=== PATIENT | female | born 1985 | race Caucasian/White ===

== ENCOUNTER 2017-03-18 03:24 | Emergency (ER) | payer OTHER ==
[~2017-03-18] VITALS: Ht 157.5 cm; Wt 94.7 kg
[~2017-03-18 03:24] MED LIST: ACET-749 PO; MTR600X PO; PRENTAB26 PO
[2017-03-18 03:29] VITALS: TEMP 36.7; Ht 157.5 cm; Wt 94.7 kg
[2017-03-18] MEDS ORDERED: FAMOTIDINE 20 MG TAB PO STA (03:44)
[2017-03-18] MEDS ORDERED: SUCRALFATE 1 GM TAB PO STA (03:44)
[2017-03-18] MEDS ORDERED: GI COCKTAIL PO STA (03:44)
[2017-03-18] MEDS ORDERED: ALUMINUM/MAGNESIUM SUSP 30 ML UDC ONE (03:56)
[2017-03-18] MEDS ORDERED: LIDOCAINE HCL 2% VISC SOLN 20 ML UDC ONE (03:57)
[2017-03-18 04:00] LABS: URINE APPEARANCE CLEAR (CLEAR); URINE BILIRUBIN NEG (NEG); URINE COLOR YELLOW; URINE NITRITE NEG (NEG); URINE SPECIFIC GRAVITY 1.027 (1.000-1.030); UROBILINOGEN NEG (NEG)
--- NOTE | 2017-03-18 04:03 | EMERGENCY ROOM VISIT NOTE ---
History Report prepared by Jose Maria: Jorje Awad Under the Supervision of: Dr. Deandre Jones M.D. First contact with patient: 03:36 Chief Complaint: ABDOMINAL PAIN Stated Complaint: CHEST,BACK,AND STOMACH PAIN History of Present Illness The patient is a 31 year old female who presents to the Emergency Room with complaints of worsening abdominal pain starting three days ago. The patient additionally states that she is having back pain and chest pain. She states that the pain woke her up this morning. The patient denies any urinary symptoms. She states that she gets chest pain often that dissipates in 45 minutes, though today it will not go away. She states that she still has her gall bladder, and there is no chance of . Additionally, she states that she does not have any heart issues, and she used to smoke. Source of History: patient Onset: three days ago Position: abdomen Timing: worsening Associated Symptoms: + chest pain, + back pain, No urinary symptoms Review of Systems See HPI for pertinent positives & negatives. A total of 10 systems reviewed and were otherwise negative. Past Medical & Surgical Medical Problems: (1) Left ankle injury Family History FH: stroke Social History Smoking Status: Former Smoker Marital Status: Housing Status: lives with family Occupation Status: unemployed Current/Historical Medications Scheduled PRN Oxycodone/Acetaminophen 5MG/325MG (Percocet 5MG/325MG), 1-2 TAB PO Q4H PRN for Pain Allergies Coded Allergies: Erythromycin (Verified Allergy, Unknown, 03/18/17) Physical Exam Vital Signs Date Time Temp Pulse Resp B/P (MAP) Pulse Ox O2 Delivery O2 Flow Rate FiO2 03/18/17 06:22 80 18 108/55 97 03/18/17 05:09 91 18 130/84 98 Room Air 03/18/17 04:12 80 03/18/17 03:29 36.7 89 20 138/94 100 Room Air Physical Exam GENERAL: Patient is a healthy-appearing well-nourished female HEAD: Normocephalic atraumatic EYES: Ocular movements intact pupils equal and react to light OROPHARYNX mucous membranes are moist no exudates present no erythema or edema present NECK: Supple no nuchal rigidity CHEST: Good equal expansion LUNGS: Clear and equal to auscultation CARDIAC: Normal S1 and S2 ABDOMEN: Tenderness in the epigastric region. Soft no guarding BACK: No CVA tenderness EXTREMITIES: No pain upon palpation normal muscle strength in all groups no clubbing cyanosis or edema NEURO: Patient is following commands and answering questions appropriately. Alert and oriented x3 Cranial Nerves 2-12 grossly intact Medical Decision & Procedures ER Provider Diagnostic Interpretation: Radiology results as stated below per my review and radiologist interpretation: US GALLBLADDER: Gallbladder stones and sludge identified. Wall is normal. No pericholecystic fluid. Sonographic Stein's sign is reported to be absent. Therefore, no definite acute cholecystitis. Common bile duct is normal measuring 4 mm. No other abnormalities. Laboratory Results 03/18/17 03:50 Red Blood Count 4.79, Mean Corpuscular Volume 86.0, Mean Corpuscular Hemoglobin 28.0, Mean Corpuscular Hemoglobin Concent 32.5, Mean Platelet Volume 9.7, Neutrophils (%) (Auto) 49.9, Lymphocytes (%) (Auto) 38.1, Monocytes (%) (Auto) 8.2, Eosinophils (%) (Auto) 3.4, Basophils (%) (Auto) 0.4, Neutrophils # (Auto) 2.31, Lymphocytes # (Auto) 1.77, Monocytes # (Auto) 0.38, Eosinophils # (Auto) 0.16, Basophils # (Auto) 0.02 03/18/17 03:50 Test 03/18/17 03:20 03/18/17 03:40 03/18/17 03:50 Urine Test NEG (NEG) Urine Color YELLOW Urine Appearance CLEAR (CLEAR) Urine pH 7.0 (4.5-7.5) Urine Specific [place] 1.027 (1.000-1.030) Urine Protein NEG (NEG) Urine Glucose (UA) NEG (NEG) Urine Ketones NEG (NEG) Urine Occult Blood NEG (NEG) Urine Nitrite NEG (NEG) Urine Bilirubin NEG (NEG) Urine Urobilinogen NEG (NEG) Urine Leukocyte Esterase NEG (NEG) White Blood Count 4.64 K/uL (4.8-10.8) Red Blood Count 4.79 M/uL (4.2-5.4) Hemoglobin 13.4 g/dL (12.0-16.0) Hematocrit 41.2 % (37-47) Mean Corpuscular Volume 86.0 fL (80-100) Mean Corpuscular Hemoglobin 28.0 pg (25-34) Mean Corpuscular Hemoglobin Concent 32.5 g/dl (32-36) Platelet Count 162 K/uL (130-400) Mean Platelet Volume 9.7 fL (7.4-10.4) Neutrophils (%) (Auto) 49.9 % Lymphocytes (%) (Auto) 38.1 % Monocytes (%) (Auto) 8.2 % Eosinophils (%) (Auto) 3.4 % Basophils (%) (Auto) 0.4 % Neutrophils # (Auto) 2.31 K/uL (1.4-6.5) Lymphocytes # (Auto) 1.77 K/uL (1.2-3.4) Monocytes # (Auto) 0.38 K/uL (0.11-0.59) Eosinophils # (Auto) 0.16 K/uL (0-0.5) Basophils # (Auto) 0.02 K/uL (0-0.2) RDW Standard Deviation 38.8 fL (36.4-46.3) RDW Coefficient of Variation 12.2 % (11.5-14.5) Immature Granulocyte % (Auto) 0.0 % Immature Granulocyte # (Auto) 0.00 K/uL (0.00-0.02) Anion Gap 3.0 mmol/L (3-11) Est Creatinine Clear Calc Drug Dose 111.1 ml/min Estimated GFR () 116.6 Estimated GFR (Non- 100.6 BUN/Creatinine Ratio 18.7 (10-20) Calcium Level 8.8 mg/dl (8.5-10.1) Total Bilirubin 0.7 mg/dl (0.2-1) Direct Bilirubin 0.1 mg/dl (0-0.2) Aspartate Amino Transf (AST/SGOT) 42 U/L (15-37) Alanine Aminotransferase (ALT/SGPT) 57 U/L (12-78) Alkaline Phosphatase 56 U/L (45-117) Total Creatine Kinase 174 U/L (26-192) Creatine Kinase MB 1.8 ng/ml (0.5-3.6) Creatine Kinase MB Ratio 1.0 (0-3.0) Troponin I < 0.015 ng/ml (0-0.045) Total Protein 6.9 gm/dl (6.4-8.2) Albumin 3.7 gm/dl (3.4-5.0) Lipase 169 U/L (73-393) Labs reviewed by ED physician. Medications Administered Medications (Trade) Dose Ordered Sig/Andres Route Start Time Stop Time Status Last Admin Dose Admin Famotidine (Pepcid Tab) 20 mg NOW STAT PO 03/18/17 03:44 03/18/17 03:46 DC 03/18/17 04:00 20 MG Sucralfate (Carafate Tab) 1 gm NOW STAT PO 03/18/17 03:44 03/18/17 03:46 DC 03/18/17 03:59 1 GM Al Hydroxide/Mg Hydroxide (Maalox Susp) 30 ml STK-MED ONCE .ROUTE 03/18/17 03:56 03/18/17 03:57 DC 03/18/17 03:59 30 ML Lidocaine HCl (Viscous Lidocaine 2% Soln) 20 ml STK-MED ONCE .ROUTE 03/18/17 03:57 03/18/17 03:58 DC 03/18/17 03:59 20 ML Hydromorphone HCl (Dilaudid Inj) 1 mg NOW STAT IV 03/18/17 04:25 03/18/17 04:26 DC 03/18/17 04:30 1 MG Ondansetron HCl (Zofran Inj) 4 mg NOW STAT IV 03/18/17 04:25 03/18/17 04:26 DC 03/18/17 04:30 4 MG Oxycodone/ Acetaminophen (Percocet 5/ 325MG Home Pack) 1 homepack UD STAT PO 03/18/17 05:41 03/18/17 05:42 DC 03/18/17 06:15 1 HOMEPACK ECG Indication: chest pain Rate (beats per minute): 75 Rhythm: normal sinus Findings: no acute ischemic change, no ectopy ED Course 0336: Past medical records reviewed. The patient was evaluated in room A3. A complete history and physical examination was performed. 0344: Carafate Tab 1gm PO, Pepcid Tab 20mg PO 0356: Maalox Susp 30ml PO 0357: Viscous Lidocaine 2% Soln 20ml PO 0425: Zofran Inj 4mg IV, Dilaudid Inj 1mg IV 0532: Upon reexamination the patient is feeling well. I discussed results and treatment plan with the patient. She verbalizes agreement and understanding. The patient is ready for discharge. 0541: Percocet 5/325mg 1 Home Pack Medical Decision Differential diagnosis: Etiologies such as appendicitis, diverticulitis, PUD, biliary pathology, UTI, pancreatitis, obstruction, mesenteric ischemia, aortic pathology, infections, inflammatory bowel disease, renal colic, as well as others were entertained. This is a 31-year-old female who presents emergency department complaining of epigastric pain. The patient was given Pepcid GI cocktail and Carafate with no improvement in her symptoms. She was given Dilaudid here in the emergency department. Serial abdominal examinations were performed on the patient in the emergency department and at no time did the patient exhibited a surgical abdomen. She was sent for an ultrasound for gallbladder which is showing sludge and stones however there is no evidence of acute cholecystitis. I believe based on this finding that this is most likely what the patient is suffering from I recommended follow-up with surgery. In addition I also recommended that the patient follow-up with gastroenterology. The patient does not have an elevation in her white blood cell count has a normal renal profile has a normal liver profile has a normal lipase. I do believe she is well enough to be discharged home for follow-up with primary care physician. Patient was in agreement with the treatment plan. Medication Reconcilliation Current Medication List: was personally reviewed by me Blood Pressure Screening Patient's blood pressure: Elevated blood pressure Blood pressure disposition: Referred to PCP Impression Primary Impression: Epigastric pain Scribe Attestation The scribe's documentation has been prepared under my direction and personally reviewed by me in its entirety. I confirm that the note above accurately reflects all work, treatment, procedures, and medical decision making performed by me. Departure Information Dispostion Home / Self-Care Prescriptions Oxycodone/Acetaminophen 5MG/325MG (PERCOCET 5MG/325MG) Tab 1-2 TAB PO Q4H Y for Pain, #14 TAB Prov: Deandre Jones MD 03/18/17 Referrals No Doctor, Assigned (PCP) Forms Call Back Authorization, HOME CARE DOCUMENTATION FORM, IMPORTANT VISIT INFORMATION, School Instructions, Work Instructions Patient Instructions ED Epigastric Pain [facility], My [employer] Additional Instructions Follow up with DR Chavez's office for Surgery Follow up with DR Burgess's office for GI Clear liquid diet next 48 hours Take 5 Ml Maalox before every meal and at bedtime You were found to have an elevated blood pressure today (>120 sytolic or >90 diastolic). Per medicare guidelines, you need to follow up with this blood pressure screening with your Primary Care Physician (PCP). For a new PCP call [phone]. You received narcotic or benzodiazepene medication while in the emergency room today. Do not drive, operate heavy machinery, or drink alcohol under the influence of this medication. Take 600 mg Ibuprofen every 6 hours Take Percocet for breakthrough pain Radiographs and CTs will be reread by a radiologist in the morning. You have been examined and treated today on an emergency basis only. This is not a substitute for, or an effort to provide, complete comprehensive medical care. It is impossible to recognize and treat all injuries or illnesses in a single emergency department visit. It is therefore important that you follow up closely with your PCP. Call as soon as possible for an appointment. Thank you for your time and consideration. I look forward to speaking with you again soon. Please don't hesitate to call us if you have any questions.
[2017-03-18 04:05] LABS: MANUAL MICROSCOPIC REQUIRED? NO; REVIEW REQ? NO
[2017-03-18 04:06] LABS: BASO % 0.4 %; BASO ABS # 0.02 K/uL (0-0.2); COMPLETE YES; EOS % 3.4 %; HEMATOCRIT 41.2 % (37-47); LYMPH % 38.1 %; LYMPH ABS # 1.77 K/uL (1.2-3.4); MEAN CORPUSCULAR HGB CONC 32.5 g/dl (32-36); MEAN PLATELET VOLUME 9.7 fL (7.4-10.4); MONO % 8.2 %; NEUT % 49.9 %; PLATELET COUNT 162 K/uL (130-400); RED BLOOD COUNT 4.79 M/uL (4.2-5.4); WHITE BLOOD COUNT 4.64 K/uL (4.8-10.8)
[2017-03-18] MEDS ORDERED: ONDANSETRON INJ 2 MG/ML 2 ML VIAL IV STA (04:25)
[2017-03-18] MEDS ORDERED: HYDROmorphone INJ 1 MG/ML SYR IV STA (04:25)
[2017-03-18 04:29] LABS: ALT/SGPT 57 U/L (12-78); AST/SGOT 42 U/L (15-37); BLOOD UREA NITROGEN 15 mg/dl (7-18); BUN/CREATININE RATIO 18.7 (10-20); CALCIUM 8.8 mg/dl (8.5-10.1); CARBON DIOXIDE 30 mmol/L (21-32); CHLORIDE 106 mmol/L (98-107); CREATININE 0.78 mg/dl (0.60-1.20); GLUCOSE 98 mg/dl (70-99); POTASSIUM 3.6 mmol/L (3.5-5.1); SODIUM 139 mmol/L (136-145)
[2017-03-18 04:32] LABS: ALKALINE PHOSPHATASE 56 U/L (45-117)
[2017-03-18] MEDS ORDERED: PERCOCET HOME PACK PO STA (05:41)
[2017-03-18] MEDS ORDERED: OXYC-57 PO (05:41)
[2017-03-18 06:22] VITALS: BP 108/55; PULSE 80; O2SAT 97
--- NOTE | 2017-03-18 08:29 | DIAGNOSTIC IMAGING REPORT ---
ABDOMINAL ULTRASOUND, RIGHT UPPER QUADRANT HISTORY: Pt c/o RUQ abd pain. COMPARISON: None. FINDINGS: Pancreas: The pancreas is only partially visualized but appears to be unremarkable. Liver: The liver is echogenic consistent with fatty change. Gallbladder: Gallstones and sludge identified within the gallbladder. No gallbladder wall thickening. The technologist reported a negative sonographic Stein's sign. The gallbladder is mildly distended. CBD: 4 mm. Right kidney: No hydronephrosis. IMPRESSION: Mildly distended gallbladder containing gallstones and sludge. No gallbladder wall thickening. The technologist reported a negative sonographic Stein's sign. Therefore, no definite evidence for acute cholecystitis at this time. Electronically signed by: Feliz Mcgill M.D. 03/18/2017 8:28 AM Dictated Date/Time: 03/18/2017 8:27 AM
== END 2017-03-18 06:24 | disposition home or self-care (01) ==
LOC: C.EDB 03:25 → C.EDA 06:24
DX: R10.13 Epigastric pain (principal); Z87.891 Personal history of nicotine dependence

== ENCOUNTER 2017-03-20 08:53 | Emergency (ER) | payer OTHER ==
[~2017-03-20] VITALS: Ht 157.5 cm; Wt 95.3 kg
[~2017-03-20 08:53] MED LIST changes: -ACET-749 PO; -MTR600X PO; +OXYC-57 PO; -PRENTAB26 PO
[2017-03-20 08:54] VITALS: TEMP 36.9; Ht 157.5 cm; Wt 95.3 kg
[2017-03-20] MEDS ORDERED: KETOROLAC TROMETHAMINE 30 MG/ML VIAL IV STA (09:11)
[2017-03-20] MEDS ORDERED: DiphenhydrAMINE HCL 50 MG/ML VIAL IV STA (09:11)
[2017-03-20] MEDS ORDERED: PROCHLORPERAZINE 5 MG/ML 2 ML VIAL IV STA (09:11)
[2017-03-20] MEDS ORDERED: SODIUM CHLORIDE 0.9% 1000ML 1,000 ML IV STA (09:11)
[2017-03-20] MEDS ORDERED: PRLSR20 PO (09:25)
[2017-03-20 09:46] LABS: URINE APPEARANCE CLEAR (CLEAR); URINE BILIRUBIN NEG (NEG); URINE COLOR DK YELLOW; URINE EPITHELIAL CELL AUTO 20-30 /lpf (0-5); URINE NITRITE NEG (NEG); URINE PH >= 9.0 (4.5-7.5); URINE SPECIFIC GRAVITY 1.028 (1.000-1.030); UROBILINOGEN NEG (NEG); ZZUR CULT IF INDIC CLEAN CATCH NO
[2017-03-20 09:46] LABS: BASO % 0.7 %; BASO ABS # 0.02 K/uL (0-0.2); COMPLETE YES; HEMATOCRIT 36.7 % (37-47); IG% 0.3 %; LYMPH % 35.5 %; LYMPH ABS # 1.08 K/uL (1.2-3.4); MEAN CELL VOLUME 86.8 fL (80-100); MEAN CORPUSCULAR HEMOGLOBIN 29.3 pg (25-34); MEAN CORPUSCULAR HGB CONC 33.8 g/dl (32-36); MONO % 14.1 %; NEUT % 47.4 %; PLATELET COUNT 150 K/uL (130-400); RED BLOOD COUNT 4.23 M/uL (4.2-5.4); WHITE BLOOD COUNT 3.04 K/uL (4.8-10.8)
[2017-03-20 09:58] LABS: PARTIAL THROMBOPLASTIN RATIO 1.1
[2017-03-20 10:00] LABS: ALB/GLOB RATIO 1.1 (0.9-2); BUN/CREATININE RATIO 13.3 (10-20); CALCIUM 8.3 mg/dl (8.5-10.1); CREATININE 0.73 mg/dl (0.60-1.20); MAGNESIUM 2.3 mg/dl (1.8-2.4); POTASSIUM 3.8 mmol/L (3.5-5.1)
--- NOTE | 2017-03-20 10:00 | DIAGNOSTIC IMAGING REPORT ---
HEAD WITHOUT CONTRAST (CT) CLINICAL HISTORY: 31 years-old Female presenting with Worst headache of life. TECHNIQUE: Multidetector CT imaging of the head was performed without the use of intravenous contrast. IV contrast: None. A dose lowering technique was used consistent with the principles of ALARA (as low as reasonably achievable). COMPARISON: None. CT DOSE (mGy.cm): The estimated cumulative dose is 638.56 mGycm. FINDINGS: Outboard Motor Tester topogram: Unremarkable. Ventricles and sulci normal in size. Brain parenchyma normal in appearance with preserved burrell-white differentiation. No mass effect or midline shift. No hemorrhage or acute territorial infarct. No extra-axial fluid collection. Paranasal sinuses and mastoid air cells clear. Calvarium intact. IMPRESSION: 1. No acute intracranial pathology. Electronically signed by: Bentley Armas M.D. 03/20/2017 9:58 AM Dictated Date/Time: 03/20/2017 9:55 AM
[2017-03-20 10:10] LABS: MANUAL MICROSCOPIC REQUIRED? NO; REVIEW REQ? NO; SULFASALICYLIC ACID NEG (NEG)
[2017-03-20 10:49] VITALS: BP 120/77; PULSE 63; O2SAT 96
[2017-03-20 11:04] LABS: LYME DISEASE AB IGG NEG (NEG); LYME DISEASE AB IGM NEG (NEG)
--- NOTE | 2017-03-20 11:17 | EMERGENCY ROOM VISIT NOTE ---
History First contact with patient: 09:02 Chief Complaint: HEADACHE Stated Complaint: HEADACHE/NECK ACHE History of Present Illness The patient is a 31 year old female who presents to the Emergency Room via private vehicle with complaints of "headache/neck ache". The patient states that she was seen here recently for abdominal pain, and is tolerating a clear liquid diet and has been doing okay. She states that yesterday she developed a headache in the eyes and forehead bilaterally. She notes it is extended into her head and into her neck region. She states that this is the worst headache she has ever had. She notes that her immunizations are up-to-date. She states that the headache pain as an 8/10. There is associated nausea. She denies any fevers, chills. She denies any close contacts with similar symptoms. She denies any previous episodes somewhat to this. Review of Systems A complete 10-point Review of Systems was discussed with the patient, with pertinent positives and negatives listed in the History of Present Illness. All remaining Review of Systems questions can be considered negative unless otherwise specified. Past Medical/Surgical History Medical Problems: (1) Left ankle injury Family History FH: stroke Social History Smoking Status: Never Smoker Marital Status: Housing Status: lives with family Occupation Status: unemployed Current/Historical Medications Scheduled Omeprazole (Prilosec), 20 MG PO DAILY Physical Exam Vital Signs Date Time Temp Pulse Resp B/P (MAP) Pulse Ox O2 Delivery O2 Flow Rate FiO2 03/20/17 10:49 63 120/77 96 03/20/17 08:54 36.9 75 18 129/85 97 Room Air Pain Rating (0-10): 2.0 Physical Exam VITAL SIGNS - Vital signs and nursing notes were reviewed. Afebrile, stable. GENERAL - 31-year-old female appearing her stated age who is in no acute distress. Communicates well with provider and answers questions appropriately. SKIN - Without rashes. HEAD - NC/AT. EYES - PERRL with EOMI bilaterally. Sclera anicteric. EARS - No deformities of external structures noted on gross examination bilaterally. No pain elicited with palpation of the tragus bilaterally. External auditory canals without discharge or otorrhea. Tympanic membranes pearly ubrrell without retraction or bulging. No fluid or purulent material visualized behind the TM. Handle of malleus, umbo, cone of light, pars tensa/ flaccid all easily visualized. NOSE - Midline and without cyanosis. No epistaxis or purulent drainage noted. Septum midline without deviation or septal hematoma noted. MOUTH/OROPHARYNX - Without perioral cyanosis. Buccal mucosa pink and moist and without leukoplakia. Tongue midline with equal elevation of palate bilaterally. No tonsillar hypertrophy, erythema, or exudates noted. Fair dentition noted. NECK - Neck with FROM. Supple to palpation. no lymphadenopathy noted. No nuchal rigidity. Negative brudzinski or kernigs. LUNGS - Chest wall symmetric without accessory muscle use, intercostals retractions, or central cyanosis. Normal vesicular breath sounds CTA B/L. No wheezes, rales, or rhonchi appreciated. CARDIAC - RRR with S1/S2. No murmur, rubs, or gallops appreciated. EXTREMITIES - No clubbing or peripheral cyanosis. No pretibial edema present. + 5/5 strength noted in UE/LE bilaterally. NEUROLOGIC - Cranial nerves II through XII grossly intact. Sensory intact to light touch throughout. Patellar reflexes +2/4. PSYCH - A&O and cooperates fully with examiner. Pt is very pleasant and interacts well with examiner. Medical Decision & Procedures ER Provider Diagnostic Interpretation: HEAD WITHOUT CONTRAST (CT) CLINICAL HISTORY: 31 years-old Female presenting with Worst headache of life. TECHNIQUE: Multidetector CT imaging of the head was performed without the use of intravenous contrast. IV contrast: None. A dose lowering technique was used consistent with the principles of ALARA (as low as reasonably achievable). COMPARISON: None. CT DOSE (mGy.cm): The estimated cumulative dose is 638.56 mGycm. FINDINGS: Needle Grinder topogram: Unremarkable. Ventricles and sulci normal in size. Brain parenchyma normal in appearance with preserved burrell-white differentiation. No mass effect or midline shift. No hemorrhage or acute territorial infarct. No extra-axial fluid collection. Paranasal sinuses and mastoid air cells clear. Calvarium intact. IMPRESSION: 1. No acute intracranial pathology. Electronically signed by: Bentley Armas M.D. 03/20/2017 9:58 AM Dictated Date/Time: 03/20/2017 9:55 AM Laboratory Results 03/20/17 09:20 Red Blood Count 4.23, Mean Corpuscular Volume 86.8, Mean Corpuscular Hemoglobin 29.3, Mean Corpuscular Hemoglobin Concent 33.8, Mean Platelet Volume 10.0, Neutrophils (%) (Auto) 47.4, Lymphocytes (%) (Auto) 35.5, Monocytes (%) (Auto) 14.1, Eosinophils (%) (Auto) 2.0, Basophils (%) (Auto) 0.7, Neutrophils # (Auto ) 1.44, Lymphocytes # (Auto) 1.08, Monocytes # (Auto) 0.43, Eosinophils # (Auto ) 0.06, Basophils # (Auto) 0.02 03/20/17 09:20 Test 03/20/17 09:20 03/20/17 09:25 White Blood Count 3.04 K/uL (4.8-10.8) Red Blood Count 4.23 M/uL (4.2-5.4) Hemoglobin 12.4 g/dL (12.0-16.0) Hematocrit 36.7 % (37-47) Mean Corpuscular Volume 86.8 fL (80-100) Mean Corpuscular Hemoglobin 29.3 pg (25-34) Mean Corpuscular Hemoglobin Concent 33.8 g/dl (32-36) Platelet Count 150 K/uL (130-400) Mean Platelet Volume 10.0 fL (7.4-10.4) Neutrophils (%) (Auto) 47.4 % Lymphocytes (%) (Auto) 35.5 % Monocytes (%) (Auto) 14.1 % Eosinophils (%) (Auto) 2.0 % Basophils (%) (Auto) 0.7 % Neutrophils # (Auto) 1.44 K/uL (1.4-6.5) Lymphocytes # (Auto) 1.08 K/uL (1.2-3.4) Monocytes # (Auto) 0.43 K/uL (0.11-0.59) Eosinophils # (Auto) 0.06 K/uL (0-0.5) Basophils # (Auto) 0.02 K/uL (0-0.2) RDW Standard Deviation 39.1 fL (36.4-46.3) RDW Coefficient of Variation 12.2 % (11.5-14.5) Immature Granulocyte % (Auto) 0.3 % Immature Granulocyte # (Auto) 0.01 K/uL (0.00-0.02) Prothrombin Time 11.0 SECONDS (9.0-12.0) Prothromb Time International Ratio 1.0 (0.9-1.1) Activated Partial Thromboplast Time 28.7 SECONDS (21.0-31.0) Partial Thromboplastin Ratio 1.1 Anion Gap 4.0 mmol/L (3-11) Est Creatinine Clear Calc Drug Dose 119.1 ml/min Estimated GFR () 126.3 Estimated GFR (Non- 109.0 BUN/Creatinine Ratio 13.3 (10-20) Calcium Level 8.3 mg/dl (8.5-10.1) Magnesium Level 2.3 mg/dl (1.8-2.4) Total Bilirubin 0.7 mg/dl (0.2-1) Aspartate Amino Transf (AST/SGOT) 122 U/L (15-37) Alanine Aminotransferase (ALT/SGPT) 206 U/L (12-78) Alkaline Phosphatase 60 U/L (45-117) Total Protein 6.5 gm/dl (6.4-8.2) Albumin 3.4 gm/dl (3.4-5.0) Globulin 3.1 gm/dl (2.5-4.0) Albumin/Globulin Ratio 1.1 (0.9-2) Lyme Disease IgG Antibody NEG (NEG) Lyme Disease IgM Antibody NEG (NEG) Urine Color DK YELLOW Urine Appearance CLEAR (CLEAR) Urine pH >= 9.0 (4.5-7.5) Urine Specific Blanchard 1.028 (1.000-1.030) Urine Protein NEG (NEG) Urine Glucose (UA) NEG (NEG) Urine Ketones NEG (NEG) Urine Occult Blood NEG (NEG) Urine Nitrite NEG (NEG) Urine Bilirubin NEG (NEG) Urine Urobilinogen NEG (NEG) Urine Leukocyte Esterase TRACE (NEG) Urine WBC (Auto) 1-5 /hpf (0-5) Urine RBC (Auto) 5-10 /hpf (0-4) Urine Hyaline Casts (Auto) 0 /lpf (0-5) Urine Epithelial Cells (Auto) 20-30 /lpf (0-5) Urine Bacteria (Auto) NEG (NEG) Urine Test NEG (NEG) Medications Administered Medications (Trade) Dose Ordered Sig/Andres Route Start Time Stop Time Status Last Admin Dose Admin Sodium Chloride 1,000 ml @ 999 mls/hr Q1H1M STAT IV 03/20/17 09:11 03/20/17 10:11 DC 03/20/17 09:34 999 MLS/HR Ketorolac Tromethamine (Toradol Inj) 30 mg NOW STAT IV 03/20/17 09:11 03/20/17 09:16 DC 03/20/17 09:35 30 MG Diphenhydramine HCl (Benadryl Inj) 50 mg NOW STAT IV 03/20/17 09:11 03/20/17 09:16 DC 03/20/17 09:35 50 MG Prochlorperazine Edisylate (Compazine Inj) 10 mg NOW STAT IV 03/20/17 09:11 03/20/17 09:16 DC 03/20/17 09:36 10 MG Medical Decision Patient was seen and evaluated as above. After obtaining a thorough history and physical examination IV access was initiated, and the above workup was performed. Patient just was today with the worst headache of her life. She was initially seen here in the emergency for abdominal pain. She was doing well up until yesterday. She is concerned this could be a reaction to the medication. I examination there is no evidence of meningitis. She was offered lumbar puncture, and initially deferred for further workup. CT scan of the head was obtained after discussing benefits versus risk. This was negative for acute process. CBC reveals white blood cell count 3.04. Hemoglobin abnormality. Coags unremarkable. The CMP does reveal chloride elevated at 108, calcium low at 8.3, her AST is high at 122, with a TIA 206. The calcium appears to be dropped 5 points compared to 2 days ago. This could be lab abnormality. The anterior cruciate ligament tear also new. She denies taking any Tylenol other than that and the Percocet. She is only had 2 tablets. She notes it was a total of 650 mg. I do not suspect Tylenol overdose. Lyme disease negative. Patient was given Toradol, Benadryl and Compazine as well as fluids and was reevaluated and was feeling pain-free. She was offered lumbar puncture, and elected to hold off from this test see how she does at home. She was educated upon risks. She is to return with worsening. She is to follow-up with her family doctor regarding today's visit, particularly for the elevated liver function tests. She was educated upon worrisome symptoms which to return, had questions on discharge, and was discharged home in good condition. Case was discussed with the attending physician. In the evaluation and treatment of this patient, the following differential diagnoses were considered: Migraine Headache, Intracranial Hemorrhage, Subdural Hematoma, Subarachnoid Hemorrhage, Cerebral Aneurysm, Temporal/Giant Cell Arteritis, Tension Headache, Meningitis, Encephalitis, or Hydrocephalus. Impression Primary Impression: Headache Additional Impression: Elevated liver function tests Departure Information Dispostion Home / Self-Care Condition GOOD Referrals Viridiana Stroud C.R.NAllPAll (PCP) Patient Instructions [facility] Additional Instructions You have been treated in the Emergency Department for a Headache. You have received pain medicine in the emergency department which impairs your ability to operate a vehicle. It is illegal for you to drive after receiving these medicines. For pain control, you can use the following [id number] medicines: - Regular strength (325mg/tab) Tylenol (acetaminophen) 2 tabs every 4-6 hours as needed. Do not exceed 12 tablets in a 24 hour period. Avoid taking more than 3 grams (3000 mg) of Tylenol per day. This includes any other sources of acetaminophen you may take on a regular basis. PLEASE DO NOT TAKE WITH THE PERCOCET. - Regular strength (200 mg/tab) Advil (ibuprofen) 1-2 tabs every 4-6 hours as needed. Do not exceed a dose of 3200 mg per day. You should relax in a quiet, dark place for the rest of the day. Avoid any possible triggers including: cigarette smoke, caffeine, nicotine, chocolate, wine, beer, loud noises or music, or bright lights. You should schedule a follow-up appointment in 2-3 days with your Primary Care Provider or established Neurologist for further evaluation and treatment of your Headache. It is recommended that you have basic blood work repeated, particularly the liver function tests. Return to the Emergency Department if your current symptoms worsen despite treatment course outlined above, or if you develop any of the following symptoms : intractable pain despite aforementioned treatment course, visual disturbances , loss of vision, unilateral weakness or facial drooping, slurring of speech, loss of coordination, or loss of consciousness. Please return to the emergency department with any new/concerning symptoms. Problem Qualifiers
== END 2017-03-20 11:29 | disposition home or self-care (01) ==
LOC: C.EDB 08:54
DX: R51 Headache (principal); R94.5 Abnormal results of liver function studies; Z82.49 Family history of ischemic heart disease and other diseases of the circulatory system; Z79.899 Other long term (current) drug therapy